=== PATIENT | male | born 1985 | race Caucasian/White ===

== ENCOUNTER 2018-10-19 13:30 | Emergency (ER) | payer OTHER ==
[~2018-10-19] VITALS: Ht 177.8 cm; Wt 78.0 kg
[2018-10-19] MEDS ORDERED: MAGNESIUM SULFATE/D5W 100 ML IV STA (13:48)
[2018-10-19] MEDS ORDERED: MAGNESIUM SULFATE/D5W 100 ML ONE (14:00)
[2018-10-19 14:09] LABS: BASOPHILS % (AUTO) 0.4 % (0.0-2.0); EOSINOPHILS # (AUTO) 0.3 K/uL (0.0-0.7); EOSINOPHILS % (AUTO) 5.5 % (0.0-7.0); HEMATOCRIT 41.6 % (36.7-47.1); HEMOGLOBIN 13.9 g/dL (12.5-16.3); LYMPHOCYTES % (AUTO) 43.6 % (20.5-51.5); MEAN CORPUSCULAR HGB CONC 33 g/dL (32.5-36.3); MEAN CORPUSCULAR VOLUME 92.6 fL (73.0-96.2); MONOCYTES # (AUTO) 0.6 K/uL (2.0-10.0); MONOCYTES % (AUTO) 12.3 % (0.0-11.0); NEUTROPHILS # (AUTO) 1.8 K/uL (1.8-8.9); NEUTROPHILS % (AUTO) 38.2 % (38.5-71.5); PLATELET COUNT (AUTO) 252 K/uL (152-348); RED BLOOD CELL COUNT(AUTO) 4.49 MIL/uL (4.06-5.63); WHITE BLOOD COUNT (AUTO) 4.6 K/uL (3.6-10.2)
[2018-10-19 14:15] LABS: CREATININE 1.3 mg/dL (0.6-1.3); POTASSIUM 4.5 mmol/L (3.5-5.1)
--- NOTE | 2018-10-19 15:16 | NUR ---
Patient discharged to home in stable conditon. Written and verbal after care instructions given. Patient verbalizes understanding of instructions. ALL BELONGINGS W/ PT. PT SELF-AMBULATED W/O DIFFICULTY. 22G IV ACCESS IN L HAND REMOVED PRIOR TO D/C - INNER CANNULA INTACT.
[2018-10-19 15:17] VITALS: BP 129/70
== END 2018-10-19 15:18 | disposition home or self-care (01) ==
LOC: ER 13:30
DX: M79.661 Pain in right lower leg (principal); M79.662 Pain in left lower leg; J45.909 Unspecified asthma, uncomplicated
CPT/HCPCS: 36415; 80048; 85025; 96365; 99283; J3475; A4663

== ENCOUNTER 2019-03-02 19:53 | Inpatient (IN) | payer OTHER ==
[~2019-03-02] VITALS: Ht 177.8 cm; Wt 83.0 kg
--- NOTE | 2019-03-02 21:30 | NUR ---
Patient walked into ER c/o abdominal pain for 1 day with 1 episode of diarrhea. Denies N/V at this time. Patient came in for worsening pain.
[2019-03-02 22:24] LABS: BASOPHILS % (AUTO) 0.3 % (0.0-2.0); EOSINOPHILS % (AUTO) 0.2 % (0.0-7.0); HEMATOCRIT 44.7 % (36.7-47.1); HEMOGLOBIN 14.9 g/dL (12.5-16.3); LYMPHOCYTES # (AUTO) 1.6 K/uL (20.0-40.0); LYMPHOCYTES % (AUTO) 12.8 % (20.5-51.5); MEAN CORPUSCULAR HEMOGLOBIN 31.1 uug (23.8-33.4); MEAN CORPUSCULAR HGB CONC 33 g/dL (32.5-36.3); MEAN CORPUSCULAR VOLUME 93.6 fL (73.0-96.2); MONOCYTES # (AUTO) 0.7 K/uL (2.0-10.0); MONOCYTES % (AUTO) 5.2 % (0.0-11.0); NEUTROPHILS # (AUTO) 10.4 K/uL (1.8-8.9); NEUTROPHILS % (AUTO) 81.5 % (38.5-71.5); PLATELET COUNT (AUTO) 255 K/uL (152-348); RED BLOOD CELL COUNT(AUTO) 4.78 MIL/uL (4.06-5.63); WHITE BLOOD COUNT (AUTO) 12.7 K/uL (3.6-10.2)
[2019-03-02 22:28] LABS: BILIRUBIN,DIRECT 0.2 mg/dL (0.0-0.2); BILIRUBIN,TOTAL 1.1 mg/dL (0.2-1.0); CREATININE 1.2 mg/dL (0.6-1.3); POTASSIUM 4.2 mmol/L (3.5-5.1); TOTAL PROTEIN, SERUM 8.1 g/dL (6.4-8.2)
[2019-03-02] MEDS ORDERED: KETOROLAC TROMETHAMINE 30 MG INJ ONE (22:58)
[2019-03-02] MEDS ORDERED: PIPERACILLIN/TAZOBACTAM/D5W 50 ML IV ONE (22:58)
[2019-03-02] MEDS ORDERED: IV NS 1000 ML 1,000 ML IV ONE (23:00)
[2019-03-02] MEDS ORDERED: KETOROLAC TROMETHAMINE 30 MG INJ IVP ONE (23:00)
[2019-03-02] MEDS ORDERED: PIPERACILLIN SODIUM/TAZOBACTAM 3.375 G in IV DEXTROSE 5% 50 ML IV ONE (23:00)
--- NOTE | 2019-03-02 23:00 | NUR ---
Patient refused toradol stating "my pain is 2/10 ,I don't need it now."
[2019-03-02] MEDS ORDERED: SWABABLE VALVE TRANSFER SET EA MC ONE (23:14)
[2019-03-02] MEDS ORDERED: IOHEXOL 350 100 ML INFUS..BTL ONE (23:14)
[2019-03-02] MEDS ORDERED: IV NORMAL SALINE 250 ML IV ONE (23:14)
[2019-03-03] VITALS (9 sets, daily range): BP systolic 117–135; BP diastolic 62–79
--- NOTE | 2019-03-03 01:50 | NUR ---
Patient agreed to be admitted to [facility].
--- NOTE | 2019-03-03 01:54 | NUR ---
Paged [facility] panel for admission to Med surg. Waiting for Marsha Cortés NP to call back.
--- NOTE | 2019-03-03 02:07 | NUR ---
Dr Jackson speaking with Milana MITCHELL regarding patient.
--- NOTE | 2019-03-03 02:09 | NUR ---
Dr Jackson speaking with Dr Garcia surgery power transmission engineer.
[2019-03-03 02:22] LABS: *BILIRUBIN,URIN NEGATIVE (NEGATIVE); *BLOOD, URINE NEGATIVE (NEGATIVE); *CLARITY,URINE CLEAR (CLEAR); *COLOR,URINE YELLOW (YELLOW); *KETONES,URINE NEGATIVE (NEGATIVE); *UROBILINOGEN,URINE 0.2 E.U./dl (NORMAL); LEUKOCYTE ESTERASE ,URINE NEGATIVE (NEGATIVE); NITRITE, URINE NEGATIVE (NEGATIVE); PH,URINE 6.5 (5.0-8.0); UGLUCOSE NEGATIVE (NEGATIVE)
[2019-03-03] MEDS ORDERED: IV NS 1000 ML 1,000 ML IV PRN (02:37)
--- NOTE | 2019-03-03 02:37 | NUR ---
Transfered to 3rd floor Med surg via wheelchair with no distress noted.
[2019-03-03] MEDS ORDERED: MAGNESIUM HYDROXIDE 30 ML LIQUID UDC PO PRN (02:45)
[2019-03-03] MEDS ORDERED: HYDROCODONE/APAP 5-325MG TABLET PO PRN (02:45)
[2019-03-03] MEDS ORDERED: ACETAMINOPHEN 325 MG TABLET PO PRN (02:45)
[2019-03-03] MEDS ORDERED: Z GUARD REMEDY PASTE 57 GM TUBE TOP PRN (02:45)
[2019-03-03] MEDS ORDERED: MORPHINE SULFATE 2 MG/1 ML DISP.SYRIN IV PRN ×2 (02:45→09:30)
[2019-03-03] MEDS ORDERED: ONDANSETRON 4 MG/2 ML VIAL IV PRN (02:45)
--- NOTE | 2019-03-03 03:00 | NUR ---
Admitted 33y/o M under the care of Milana MITCHELL. Dx: Acute appendecitis. Patient is A&Ox4, noted ambulatory w/ steady gait. No complaints of pain at this time. IV on LFA intact and patent. Admission protocol initiated. Oriented patient to his room and w/ the use of call light. Safety measures observed. Call light in reach
[2019-03-03] MEDS ORDERED: PIPERACILLIN/TAZOBACTAM/D5W 50 ML IV ONE (05:40)
[2019-03-03] MEDS ORDERED: PIPERACILLIN SODIUM/TAZOBACTAM 3.375 G in IV DEXTROSE 5% 50 ML IV SCH (06:00)
[2019-03-03] MEDS ORDERED: ACETAMINOPHEN 650 MG SUPP.RECT RC PRN (09:30)
[2019-03-03] MEDS ORDERED: LIDOCAINE HCL 1% 20 ML VIAL ONE (09:43)
[2019-03-03] MEDS ORDERED: BUPIVACAINE/EPI PF 0.25% 30 ML VIAL ONE (09:43)
[2019-03-03] MEDS: PANTOPRAZOLE SODIUM 40 MG VIAL IV SCH (09:58)
--- NOTE | 2019-03-03 11:00 | NUR ---
Pt received this morning AAOx4. Plan for today discussed with Pt including Sx procedure with honey liquefier Dr. Garcia. Pre-op check list reviewed, Pt spoke with MD over the phone, and consent signed. Pre-op concerns addressed. VS stable. Pt denies serious pain and pain medication at this time, reporting severity has subsided significantly. OR called and report given to COMMUNICATIONS REPRESENTATIVE regarding Appendectomy planned for noon. Bed in locked and lowest position, with alarm on. IV flushed and patent. Personal items and call light placed within reach. Will continue to monitor.
[2019-03-03] MEDS: IV D5/ 0.9% NACL 1,000 ML IV PRN ×2 (11:05→23:30)
[2019-03-03] MEDS ORDERED: ROCURONIUM BROMIDE 50 MG/5 ML VIAL ONE (11:53)
[2019-03-03] MEDS ORDERED: MIDAZOLAM HCL 2 MG/2 ML VIAL ONE (11:53)
[2019-03-03] MEDS ORDERED: FENTANYL CITRATE 250 MCG/5 ML AMPUL ONE (11:53)
[2019-03-03] MEDS: PIPERACILLIN/TAZOBACTAM/D5W 3.375 G in IV DEXTROSE 5% 50 ML IV SCH ×2 (13:50→21:28)
[2019-03-03] MEDS ORDERED: BACITRACIN ZINC OINT 15 GM TUBE TP ONE (14:22)
[2019-03-03] MEDS ORDERED: METOCLOPRAMIDE HCL 10 MG/2 ML VIAL IV ONE (14:25)
[2019-03-03] MEDS ORDERED: IV NORMAL SALINE 1000 ML BAG IV ONE ×2 (14:25)
[2019-03-03] MEDS ORDERED: NEOSTIGMINE METHYLSULFATE 10 MG/10 ML VIAL IM ONE (14:25)
[2019-03-03] MEDS ORDERED: LIDOCAINE-MPF 2% 5 ML VIAL IJ ONE (14:25)
[2019-03-03] MEDS ORDERED: PROPOFOL 200 MG/20 ML BOTTLE IV ONE (14:25)
[2019-03-03] MEDS ORDERED: ROCURONIUM BROMIDE 50 MG/5 ML VIAL IV ONE (14:25)
[2019-03-03] MEDS ORDERED: GLYCOPYRROLATE 0.2 MG/ML VIAL IJ ONE (14:25)
[2019-03-03] MEDS ORDERED: SEVOFLURANE 250 ML BOTTLE IH ONE (14:25)
[2019-03-03] MEDS ORDERED: KETOROLAC TROMETHAMINE 30 MG INJ IM ONE (14:25)
[2019-03-03] MEDS ORDERED: ONDANSETRON 4 MG/2 ML VIAL IV ONE (14:25)
[2019-03-03] MEDS ORDERED: HYDROMORPHONE 1 MG/1 ML DISP.SYRIN IV PRN (15:00)
--- NOTE | 2019-03-03 15:57 | NUR ---
Pt returned from OR, Post-Op Laparoscopic Appendectomy. Report received from MACHINE SIGN WRITER. No acute distress. Pt VS stable. Pt tolerated Sx well. IV fluids running as ordered D5 at 150ml/hr. New orders received, including clear liquid diet for today and advance tomorrow as tolerated. Original dressing to remain in place. PT reports tenderness but denies serious pain at this time, reports tolerable. Call light placed within reach. Will continue to monitor.
--- NOTE | 2019-03-03 19:04 | NUR ---
Pt seen by , Dr. Monk, no new orders. Pt continues to deny pain at this time. All needs attended to promptly this shift. Call light within reach. Will continue to monitor and endorse to on coming pest control service sales agent nurse.
[2019-03-04 04:53] VITALS: BP 106/70
[2019-03-04] MEDS: PIPERACILLIN/TAZOBACTAM/D5W 3.375 G in IV DEXTROSE 5% 50 ML IV SCH (05:38)
[2019-03-04] MEDS: IV D5/ 0.9% NACL 1,000 ML IV PRN (06:47)
--- NOTE | 2019-03-04 06:52 | NUR ---
Patient slept well. No complaints of pain at this time. Patient instructed to use insentive spirometer. All needs attended. Will endorse accordingly
[2019-03-04 06:59] LABS: BILIRUBIN,TOTAL 0.7 mg/dL (0.2-1.0); CREATININE 1.3 mg/dL (0.6-1.3); MAGNESIUM 1.7 mg/dL (1.8-2.4); PHOSPHOROUS 3.2 mg/dL (2.5-4.9); POTASSIUM 4.1 mmol/L (3.5-5.1); TOTAL PROTEIN, SERUM 5.9 g/dL (6.4-8.2)
[2019-03-04 07:00] LABS: BASOPHILS % (AUTO) 0.5 % (0.0-2.0); EOSINOPHILS # (AUTO) 0.1 K/uL (0.0-0.7); EOSINOPHILS % (AUTO) 2.3 % (0.0-7.0); LYMPHOCYTES # (AUTO) 1.7 K/uL (20.0-40.0); MONOCYTES # (AUTO) 0.5 K/uL (2.0-10.0); NEUTROPHILS # (AUTO) 3.3 K/uL (1.8-8.9)
[2019-03-04 07:12] LABS: LYMPHOCYTES % (AUTO) 30.3 % (20.5-51.5); MEAN CORPUSCULAR HEMOGLOBIN 31.4 uug (23.8-33.4); MEAN CORPUSCULAR HGB CONC 33 g/dL (32.5-36.3); MEAN CORPUSCULAR VOLUME 95.1 fL (73.0-96.2); MONOCYTES % (AUTO) 8.9 % (0.0-11.0); RED BLOOD CELL COUNT(AUTO) 3.98 MIL/uL (4.06-5.63)
[2019-03-04 07:14] LABS: HEMATOCRIT 37.9 % (36.7-47.1); HEMOGLOBIN 12.5 g/dL (12.5-16.3); PLATELET COUNT (AUTO) 189 K/uL (152-348); THYROID STIMULATING HORMONE 2.704 mIU/mL (0.358-3.740); WHITE BLOOD COUNT (AUTO) 5.7 K/uL (3.6-10.2)
--- NOTE | 2019-03-04 07:20 | NUR ---
RECEIVED PATIENT AWAKE AND ALERT IN BED. PATIENT DENIES PAIN AND DISCOMFORT. NO ACUTE DISTRESS NOTED.BED IN LOWEST POSITION, SIDE RAILS UP X2, CALL LIGHT WITHIN REACH. WILL CONTINUE TO MONITOR.
[2019-03-04] MEDS: PANTOPRAZOLE SODIUM 40 MG VIAL IV SCH (08:43)
[2019-03-04] MEDS ORDERED: MAGNESIUM OXIDE 400 MG TABLET PO ONE (09:45)
[2019-03-04 11:10] VITALS: BP 113/66
[2019-03-04] MEDS ORDERED: MIRALAX 17 GM POWD.PACK PO ONE (12:00)
[2019-03-04] MEDS ORDERED: DOCU-141 PO (14:47)
[2019-03-04] MEDS ORDERED: ACET-2154 PO (14:47)
[2019-03-04 15:12] VITALS: BP 120/65
--- NOTE | 2019-03-04 15:55 | NUR ---
DISCHARGED PATIENT. PATIENT SIGNED DISCHARGE INSTRUCTION. PATIENT VERBALLY UNDERSTANDS DISCHARGE. REMOVED PATIENTS IV. PATIENT GOT DRESSED AND STOOD WITHOUT ANY DIZZINESS. REMOVED ARM BAND. ESCORTED PATIENT DOWN TO ELEVATOR.
[2019-03-05] MEDS ORDERED: PANTOPRAZOLE SODIUM 40 MG TABLET.DR PO SCH (07:00)
== END 2019-03-04 16:00 | disposition home or self-care (01) | DRG 343 ==
LOC: ER 19:54 → MEDSURG3 03-03 02:22
PROVIDERS: ADMIT Registered Nurse; ATTEND Internal Medicine
PROC: 0DTJ4ZZ Resection of Appendix, Percutaneous Endoscopic Approach (ICD-10-PCS; principal; 2019-03-03)
DX: K35.80 Unspecified acute appendicitis (principal); Z98.1 Arthrodesis status; E11.9 Type 2 diabetes mellitus without complications; Z79.4 Long term (current) use of insulin; Z96.41 Presence of insulin pump (external) (internal); F17.210 Nicotine dependence, cigarettes, uncomplicated; J45.909 Unspecified asthma, uncomplicated; K21.9 Gastro-esophageal reflux disease without esophagitis; E83.42 Hypomagnesemia
CPT/HCPCS: 36415; 83690; 83735; 84100; 84443; 85025; A4663; C9113; G0378; J1885; J2250; J2405; J2543; J2710; J2765; J3010; J3490; J7030; J7042; J7050; J7060; Q9967